=== PATIENT | male | born 1985 | race Caucasian/White ===

== ENCOUNTER 2017-06-10 08:11 | Emergency (ER) | payer SELFPAY ==
--- NOTE | 2017-06-10 08:38 | RAD ---
RADIOGRAPH LEFT THIRD DIGIT TWO VIEWS: History: 32-year-old male status post blunt trauma to the third digit. FINDINGS: There is no fracture, dislocation, or any other osseous abnormality. IMPRESSION: Normal. POS: [facility]
[2017-06-10] MEDS ORDERED: Bacitracin Zinc 1 Packet ONE (08:50)
== END 2017-06-10 09:15 | disposition home or self-care (01) ==
LOC: NAV ERS 08:11
DX: S60.132A Contusion of left middle finger with damage to nail, initial encounter (principal); I10 Essential (primary) hypertension; W45.8XXA Other foreign body or object entering through skin, initial encounter

== ENCOUNTER 2020-08-25 22:29 | Emergency (ER) | payer OTHER ==
[2020-08-26] MEDS ORDERED: traMADol HCl 50 MG TAB ONE (00:05)
--- NOTE | 2020-08-26 00:05 | RAD ---
2 views of the right tibia/fibula: 08/26/2020 COMPARISON: None HISTORY: Injury, trauma, pain FINDINGS: No fracture or dislocation. No radiopaque foreign body or subcutaneous gas. IMPRESSION: No acute findings.
== END 2020-08-26 00:25 | disposition home or self-care (01) ==
LOC: NAV ERS 22:29
DX: S86.111A Strain of other muscle(s) and tendon(s) of posterior muscle group at lower leg level, right leg, initial encounter (principal); X50.1XXA Overexertion from prolonged static or awkward postures, initial encounter; Y93.61 Activity, american tackle football; Y99.8 Other external cause status